=== PATIENT | female | born 1960 | race Caucasian/White ===

== ENCOUNTER 2022-01-12 19:46 | Inpatient (IN) | payer OTHER ==
[~2022-01-12] VITALS: Ht 157.5 cm; Wt 99.2 kg
[2022-01-12] MEDS ORDERED: MAXALT10 MG PO (20:29)
[2022-01-12] MEDS ORDERED: HYDROCODON-ACE1 EA10 PO (20:30)
--- NOTE | 2022-01-13 07:30 | NUR ---
SHIFT REPORT RECEIVED FROM KAVIN PRYOR. PT UP IN BED, CRYING 10/10 ABD PAIN. RN WILL CONTACT MD FOR PAIN CONTROL OPTIONS.
--- NOTE | 2022-01-13 07:40 | NUR ---
PT REPORTS 10/10 ABD PAIN. PT REFUSES TO TAKE DILAUDID BUT TO HER OXYCODONE ABOUT 3 HOURS AGO. PT STATES THAT THE TORADOL SHE HAD IN THE ER WORKED WELL. MD CALLED ON THE PHONE TO REQUEST PAIN MEDS. TORADOL 30MG IV ONCE ORDERED. ORDER REPEATED BACK.
--- NOTE | 2022-01-13 07:56 | NUR ---
SCHEDULED MED PROVIDED. NO OTHER NEEDS. CALL LIGHT IN REACH.
--- NOTE | 2022-01-13 08:11 | NUR ---
PT PAIN 10/10, PRN PAIN MED PROVIDED. MEDICATION EDUCATION PROVIDED. NO OTHER NEEDS. CALL LIGHT IN REACH.
--- NOTE | 2022-01-13 09:45 | NUR ---
ASSESSMENT COMPLETED. SCHEDULED MEDS PROVIDED. GCS 15, A&O X4. LUNGS CLEAR, HEART TONES REGULAR. ABD SOFT, TENDER, BOWEL TONES ACTIVE. CMS INTACT. EDEMA IN LAFT HAND FROM IV INFILTRATION RESOLVING, GENERALIZED. IV WNL, CDI, FLUSHED WELL. NO OTHER NEEDS AT THIS TIME. CALL LIGHT IN REACH.
--- NOTE | 2022-01-13 10:15 | NUR ---
PT REPORTS 6/10 PAIN, PRN PAIN MED PROVIDED. NO OTHER NEEDS. CALL LIGHT IN REACH.
--- NOTE | 2022-01-13 10:40 | NUR ---
Spoke with pt. She lives in [facility] in a 2 story house, no rails. Laundry and bedroom in the basement. 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 She denies needs. States she is trying to finding a music mixer that is in Net work. Daughter works in insurance and is attempting to help. She asked if hospitalist would make a referral and I let her know she may need to go through her PCP. She denies any other needs and plans on dc to home when she is cleared medically.
--- NOTE | 2022-01-13 11:48 | NUR ---
PT RESTING IN BED, EYES CLOSED. RR EVEN, UNLABORED. CALL LIGHT IN REACH.
--- NOTE | 2022-01-13 12:19 | NUR ---
KONSTANTIN MARTINEZ REQUESTED I NOT DISTURB PT AT THIS TIME. SHE HAS HAD A ROUGH NIGHT AND NOT MUCH SLEEP. WILL FOLLOW NEEDED
--- NOTE | 2022-01-13 12:27 | NUR ---
THIS RN TO ROOM TO CHECK ON PT. PT UP IN ROOM PACING. PT REPORTS "I JUST WOKE UP FROM A NAP AND THE PAIN IS RISING." PT REPORTS 8/10 SHARP PAIN IN ABODMEN WELL 5/10 HEADACHE PAIN. PT REQUESTS DILAUDID AND TYLENOL. SEE MAR FOR MEDICATION GIVEN. PT STATES HER HEADACHE DOES NOT FEEL LIEK A MIGRAINE AND DECLINES [place]. PT DRINKING LARGE AMOUNTS OF WATER. PT ENCOURAGED TO DRINK LESS FLUIDS IF PAIN IS ESCLATING. PT VERBALIZES UNDERSTANDING. PT UP TO RESTROOM, STEADY ON FEET AND INDEPENDANT IN ROOM. NO ADDITIONAL NEEDS, CALL LIGHT WITHIN REACH.
--- NOTE | 2022-01-13 14:00 | NUR ---
PT REPORTS 10/10 ABD PAIN. PRN PAIN MEDICATIONS PROVIDED. PAIN MANAGEMENT EDUCATION PROVIDED. PT VERY ANXIOUS ABOUT PAIN NOT BEING MANAGED AND EXUASTING PAIN MEDICATION OPTIONS. NO OTHER NEEDS AT THIS TIME. PAIN HAS DROPPED TO A 5/10 AFTER 30 MINUTES OF EDUCATION. CALL LIGHT IN REACH.
--- NOTE | 2022-01-13 15:24 | NUR ---
RN IN ROOM TO ASSESS PT -PT RESTING ON COUCH UPON ENTERING. PT RATES PAIN 4/10 IN ABD AND REQUESTS PAIN MEDICATION. 20MG PO ADMINISTERED - EDUCATION PROVIDED TO PT REGARDING STEPS TO MANAGE PAIN BETTER. PT DENIES FURTHER NEEDS AT THIS TIME. IV SITE TOLERATING IVF WITHOUT DIFFICULTY.
--- NOTE | 2022-01-13 17:43 | NUR ---
RN ROUNDING ON PT - PT RESTING IN BED ASLEEP UPON ENTRY. PT STATES PAIN IS MODERATLY CONTROLLED WITH 20MG OXY. DENIES NEED FOR FURTHER COVERAGE RIGHT NOW. AT BEDSIDE. PT REQUESTS 1L VIA NC WHILE SLEEPING - SP02 STABLE ON ROOM AIR BUT PT ANXIOUS REGARDING WHATS "THE RIGHT THING TO DO".
--- NOTE | 2022-01-13 18:07 | NUR ---
PT USES CALL LIGHT TO REQUEST PAIN MEDICATION - IV DILAUDID ADMINISTERED. PT CONTINUES TO HAVE NC IN PLACE.
--- NOTE | 2022-01-13 19:38 | NUR ---
PT JUST RETURNED TO HER ROOM FROM AMBULATING IN THE HALLS. IS AT BEDSIDE. PT APPEARS TO BE ANXIOUS. DISCUSSED A PAIN CONTROL PLAN. CALL LIGHT INREACH.
--- NOTE | 2022-01-13 22:31 | NUR ---
PT IS SITTING UP ON HER COUCH IN ROOM. SHE HAS ICE PACKS, WATER ON HER TABLE, FEET PROPPED UP. SHE STATES HER PAIN IS 0/10.
--- NOTE | 2022-01-14 01:01 | NUR ---
P[T WAS SLEEPING COMFORTABLY WHEN HER PAIN ESCALATED AND WOKE HER UP. PAIN WENT FROM 8/10 TO 10/10. PT WAS NOTICEABLY SHAKING. PT WAS MEDICATED WITH PO OXYCODONE AND THEN DIALUDID 0.5 MG IV. SHE AHS 2 ICE PACKS , 1 ON ABD AND 1 ON HER BACK FOR COMFORT. SHE HAS PILLOWS UNDER EACH ARM. OXYGEN SAT WAS 97 % ON ROOM AIR.
--- NOTE | 2022-01-14 01:39 | NUR ---
PT RATES HER PAIN 8/10 NOW AFTER A SHORT NAP. SHE WAS UP TO THE BATHROOM TO VOID. URINE IS CLOUDY AND ORANGE COLORED.
--- NOTE | 2022-01-14 06:45 | NUR ---
DR AYOUB NOTIFIED OF INCREASE IN WBC AND LOW MAGNESIUM ON LABS THIS AM. NO NEW ORDERS.
--- NOTE | 2022-01-14 07:30 | NUR ---
THIS RN RECEIVED SHIFT REPORT FROM KONSTANTIN COELLO. PATIENT SITTING UP ON THE COUCH WAITING FOR OXYCODONE TO KICK IN ABD/BACK PAIN 02/01. PATIENT APPLYING ICE PACK TO ABD. PATIENT DENIES ANY CARE NEEDS AT THIS TIME. CALL LIGHT IS IN REACH.
--- NOTE | 2022-01-14 08:06 | NUR ---
PATIENT WAS ALREADY UP ON COUCH AND HAD ALREADY COMPLETED ORAL CARE. CALL LIGHT WITHIN REACH.
--- NOTE | 2022-01-14 08:20 | NUR ---
IESHA'S PAIN IS CONTROLLED AT HER COMFORT LEVEL AND DOES NOT WANT ANY PAIN MEDICATION AT THIS TIME, BUT WOULD LIKE THE TORADOL WHEN IT IS AVAILABLE. PATIENT AM ASSESSMENT COMPLETE. PATIENT DENIES ANY OTHER CARE NEEDS AT THIS TIME. CALL LIGHT IS IN REACH.
--- NOTE | 2022-01-14 09:20 | NUR ---
THIS RN IN TO SEE PATIENT. PATIENT HAVING 6/10 ABD PAIN AND GIVEN 30MG SIVP TORADOL AND 0.5MG SIVP DILAUDID. PATIENT REMAINS SITTING P ON THE COUCH. PATIENT ONLY DRANK ABOUT 100MLS OF BREAKFAST. PATIENT DENIES NAUSEA AND HAS NO OTHER CARE NEEDS AT THIS TIME. CALL LIGHT IN REACH AND IV INFUSING AND SITE WNL. CALL LIGHT IN REACH.
--- NOTE | 2022-01-14 09:56 | NUR ---
PT ON COUCH, DRINKING FLUIDS. NO NEEDS OR CONCERNS AT THIS TIME. WILL APPROACH LATER FOR BATHING, REFUSING SHOWER AT THIS TIME. CALL LIGHT WITHIN REACH.
--- NOTE | 2022-01-14 10:17 | NUR ---
THIS RN IN TO SEE PATIENT. PATIENT SAYS HER PAIN IS DOWN TO 5/10 AND FABIO SHE IS COMFORTABLE AT THAT LEVEL. PATIENT HAS NO OTHER CARE NEEDS AT THIS TIME. CALL LIGHT IS IN REACH.
--- NOTE | 2022-01-14 11:10 | NUR ---
PTS OUTPUT IS VERY ORANGE AND CLOUDY. NURSE NOTIFIED.
--- NOTE | 2022-01-14 13:32 | NUR ---
PT CALL LIGNT ON. PT REQUESTS "MORE PAIN MEDICATION" FOR "ESCALIATING" PAIN IN ABDOMEN. PT REPORTS 8 PAIN IN ABDOMEN. SEE MAR FOR MEDICATION GIVEN. PT REQUESTS CRANBERRY JUICE. EDUCATION DONE WITH PT REGARDING DRINKING A LOT WHEN HER ABDOMEN IS HURTING. PT STATES "WELL I JUST WAN'T TO DRINK, MY MOUTH IS TOO DRY." NO ADDITIONAL REQUESTS OR COMPLAINTS. CALL LIGHT WITHIN REACH.
--- NOTE | 2022-01-14 15:40 | NUR ---
THIS RN IN TO SEE PATIENT. PATIENT'S PAIN IS 2/10 AND SHE FEELS "PRETTY GOOD" AT THIS TIME. DEBIES NAUSEA OR NEED FOR PAIN MEDICATION. AFTERNOON ASSESSMENT IS COMPLETE. PATIENT REQUESTING TO MOVE TO FULL LIQUIDS. THIS WAS CLEARED WITH AND ORDER PLACED FOR FULL LIQUIDS AND TO ADVANCE TLERATED TO A REGULAR LOW FAT DIET. PATIENT GIVEN SOME VANILLA PDDING BY THIS RN. PATIENT DENIED ANY OTHER NEEDS AT THIS TIME. CALL LIGHT IS IN REACH.
--- NOTE | 2022-01-14 17:05 | NUR ---
PATIENT CALLED HAVING AN SUDDEN INCREASE IN ABD/LOW BACK PAIN 02/01. 0.5MG SIVP DILAUDID GIVENAS WELL 30MG IV TORADOL SIVP. PATIENT DENIED NAUSEA, BUT WAS NOT REALLY HUNGRY FOR DINNER AND TRAY WAS REMOVED AT PATIENT'S REQUEST. PATIENT DENIES ANY OTHER NEEDS AT THIS TIME. CALL LIGHT IS IN REACH.
--- NOTE | 2022-01-14 19:17 | NUR ---
PATIENT'S PAIN CONTROLLED AT THIS TIME. SHIFT REPORT GIVEN TO KONSTANTIN VALE. PATIENT DENIES ANY CARE NEEDS AT THIS TIME. CALL LIGHT IS IN REACH.
--- NOTE | 2022-01-14 19:44 | NUR ---
pt sitting in recliner, reort recieved. pain medication shedual discussed. pt states she is "comfortable" at this time. she does state she feels hot, fan at bedside provided. call light in reach and water avalable on bedside table. pt is independant in room. no needs stated at this time
--- NOTE | 2022-01-15 01:54 | NUR ---
PT ATE PUDDING EARLY THIS EVENING AND PT STATES THIS CAUSED HER "PAIN TO FLAIR" PT STATES NO PAIN AT THIS TIME. SHE IS RESTING COMFORTABLY IN BED.
--- NOTE | 2022-01-15 03:47 | NUR ---
pt awake and sitting on couch, she states "no abdominal pain" but said she has a headache, discussed home caffeine intake, she drinks tea all day. so hot tea given.
--- NOTE | 2022-01-15 05:10 | NUR ---
PT HAS BEEN RESTLESS TONIGHT, SHE STATES, " IF DO FEEL MYSELF, LIKE IM FOGGY IN THE BRAIN. DISCUSSED PAIN MEDICATION AND THEIR SIDEFFECTS. ENCOURAGED PT ONLY USE IV PAIN MEDICATION IF ORL PAIN MEDICATIONS DO NOT EFFECTIVLY REDUCE PAIN AFTER 45-60 MIN AFTER ADMINISTRATION. SHE WAS VERY INSISTANT THAT TORDOL AND DILAUDID BE GIVEN TOGETHER. WHEN SHE TAKES OXYCODONE PT CALLS AND WANT DILAUDID 15 MIN AFTER ADMINISTRATION. PT NEED MORE PAIN MANAGMENT EDUCATION. SHE DOES TAKE NARCOTICS REGULARLY AT HOME, FOR BACK PAIN.
--- NOTE | 2022-01-15 06:36 | NUR ---
PT STATES "MY FOG IS BETTER". PT REMAINS FORGETFULL AND CALLS FREQUANTLY ABOUT "WHERE ARE WE WITH TIMING OF MY PAIN MEDICATION", REINFIRCED WITH PT THAT MEDICATION IS AVALABLE PRN FOR PAIN THAT IS NOT TOLORABLE.
--- NOTE | 2022-01-15 07:15 | NUR ---
PT SITTING ON COUCH. PT REQ SHOWER. TOLD PT WILL SHOWER LATER THIS AM. PT IS INDEPENDENT IN ROOM. PT COULD REACH CALL LIGHT. NO FURTHER NEEDS AT THIS TIME.
--- NOTE | 2022-01-15 07:30 | NUR ---
SHIFT REPORT GIVEN TO THIS RN BY KONSTANTIN VALE. PATIENT HAS 3/10 PAIN AND IS COMFORTABLE AT THIS TIME. PATIENT REQUESTED A GLASS OF CRANBERRY JUICE WHICH WAS GIVEN BY THIS RN. PATIENT DENIED ANY OTHER CARE NEEDS AT THIS TIME. CALL LIGHT IS IN REACH.
--- NOTE | 2022-01-15 10:13 | NUR ---
PATIENT CALLED HAVING SOME NAUSEA. 4MG SIVP ZOFRAN GIVEN. PATIENT HAS HAD A SHOWER AND DENIES ANY OTHER NEEDS AT THIS TIME. IN THE ROOM TALKING WITH THE PATIENT ABOUT DC AT THIS TIME. CALL LIGHT IN REACH.
[2022-01-15] MEDS ORDERED: OXYCODONE HCL5 MG PO (10:27)
[2022-01-15] MEDS ORDERED: ONDANSETRON HCL4 MG PO (10:28)
[2022-01-15] MEDS ORDERED: CREON DR 3,0001 EACH PO (10:29)
--- NOTE | 2022-01-15 10:45 | NUR ---
PATIENT'S NAUSEA IS GONE AND IV IS NOW SALINE LOCKED. PATIENT ANTICIPATING DC. PATIENT HAS NO OTHER CARE NEEDS AT THIS TIME. CALL LIGHT IS IN REACH.
--- NOTE | 2022-01-15 13:08 | NUR ---
PATIENT CALLED HAVING 9/10 ABD PAIN AND WAS NOT ABLE TO EAT HER LUNCH AND PATIENT IS ALSO NAUSEATED. 20MG PO OXYCODONE WAS GIVEN AND 4MG PO ZOFRAN GIVEN. PATIENT WAS WANTING THE IV TORADOL, BUT I INFORMED THE PATIENT THAT HER IV MEDICATIONS HAD ALREEADY BEEN DC'D IN ANTICIPATION OF HER DC. PATIENT IS VERY ANXIOUS AT THIS TIME AND IS WONDERING HOW SHE IS GOING TO FILL HER RX'S ON THE WEEKEND. THIS RN TRYING TO FIND OUT THE ANSWERS TO THESE QUESTIONS. CALL LIGHT IS IN REACH.
--- NOTE | 2022-01-15 13:23 | NUR ---
PATIENT TEARFUL AND REQUESTING THAT WE FILL HER RX'S FOR A DAY SHE DOES NOT FEEL SHE HAS APPROPRIATE ATTIRE WITH HER TO GO INTO A PHARMACY. THIS RN SUGGESTED THAT SHE SEND HER DAUGHTER WHO IS COMING TO GET HER INTO THE PHARMACY TO GET HER MEDS. PATIENT INFORMED THE [facility] ARE BOTH OPEN UNTIL 6PM AND THE [facility] ARE ALSO OPEN UNTIL 6PM AND [facility] UNTIL 7PM. CALL LIGHT IS IN REACH.
--- NOTE | 2022-01-15 13:40 | NUR ---
PT IN CHAIR. PT CO OF PAIN. PT OFFERED REFRESH ON WATER AND DECLINED. PT REQ FOOD BE TAKEN OUT OF ROOM. PT DID NOT WANT TO EAT ANYMORE. TRIED TO PUT CALL LIGHT WITHIN REACH BUT PT DECLINED AND SAID SHE COULD GET UP AND DO IT IF SHE NEEDS US.
--- NOTE | 2022-01-15 14:15 | NUR ---
THIS RN RETURNED FROM LUNCH AND DANTE CHARGE NURSE INFORMED ME PATIENT HAD BEEN GIVEN HER DC RX AND HER IV HAD BEEN PULLED INTACT. PATIENT ALSO HAD DC VS DONE. PATIENT REMIANED ANGRY THAT THE HOSPITAL WOULD NOT FILL HER RX'S AND THAT SHE WOULD NEED TO GO BY A PHARMACY AFTER DC. KONSTANTIN HOEWLL INFORMED ME AT 1415 THE PATIENT HAD BEEN WAITING FOR HER RIDE, BUT HAD DC AND F/U INSTRUCTIONS AND PATIENT JUST WALKED OUT OF MED/SURG. THIS RN WENT TO CHECK PATIENT'S ROOM AND ALL OF PATIENT'S BELONGINGS WERE GONE.
== END 2022-01-15 14:15 | disposition home or self-care (01) | DRG 440 ==
LOC: ED 19:46 → MS 19:47
PROVIDERS: ADMIT Internal Medicine; ATTEND Internal Medicine
DX: K85.00 Idiopathic acute pancreatitis without necrosis or infection (principal); K86.1 Other chronic pancreatitis; Z88.2 Allergy status to sulfonamides; G43.909 Migraine, unspecified, not intractable, without status migrainosus; Z91.040 Latex allergy status; Z79.899 Other long term (current) drug therapy; Z20.822 Contact with and (suspected) exposure to COVID-19
CPT/HCPCS: 36415; 74177; 80048; 80053; 80061; 81001; 83690; 83735; 85025; 87502; 96361; 96375; 96376; 99285-25; A9270; C9113; C9803; J1170; J1650; J1885; J2405; J3475; J7030; J7121; Q9967; U0003

== ENCOUNTER 2022-05-29 04:55 | Emergency (ER) | payer OTHER ==
[~2022-05-29] VITALS: Ht 157.5 cm; Wt 96.5 kg
[~2022-05-29 04:55] MED LIST: CREON DR 3,0001 EACH PO; HYDROCODON-ACE1 EA10 PO; MAXALT10 MG PO; ONDANSETRON HCL4 MG PO; OXYCODONE HCL5 MG PO
[2022-05-29] MEDS ORDERED: ONDANSETRON ODT8 MG PO (07:21)
[2022-05-29] MEDS ORDERED: HYDROCODON-ACE1 EA10 PO (07:21)
[2022-05-29] MEDS ORDERED: PROTONIX40 MG PO (07:21)
== END 2022-05-29 07:32 | disposition home or self-care (01) ==
LOC: ED 04:55
DX: R10.9 Unspecified abdominal pain (principal); R11.2 Nausea with vomiting, unspecified; D72.829 Elevated white blood cell count, unspecified; Z88.2 Allergy status to sulfonamides; Z91.040 Latex allergy status; Z20.822 Contact with and (suspected) exposure to COVID-19
CPT/HCPCS: 36415; 74177; 80053; 81001; 83690; 83735; 85025; 96361; 96375; 96376; 99284-25; A9270; J1170; J2405; J7030; Q9967; U0003

== ENCOUNTER 2024-02-19 18:26 | Emergency (ER) | payer OTHER ==
[~2024-02-19] VITALS: Ht 157.5 cm; Wt 95.8 kg
--- OUTSIDE RECORDS SUMMARY | ~2024-02-19 | XMS | Continuity of Care Document ---
Demographics + + + | Address | [address] | | | [place] [address] | + + + | Preferred Language | Unknown | + + + | Marital Status | | + + + | Orthodoxy Affiliation | Unknown | + + + | Race | White | + + + | Ethnic Group | Not or | + + + Author + + + | Author | [facility] | + + + | Organization | [facility] | + + + | Address | [address] | | | [place] [address] | + + + | Phone | | + + + Care Team Providers + + + + | [facility] Constable Name | Role | Phone | + + + + Unavailable | Unavailable | + + + + Unavailable | Unavailable | + + + + Allergies No information. Encounters No information. Functional Status No information. Immunizations No information. Medications + + + + | date | description | facility | + + + + | 2023-12-31 00:00 | rizatriptan 10 MG Oral | [facility] | | | Tablet | | + + + + | 2023-12-31 00:00 | Rizatriptan Benzoate 10 MG | [facility] | | | Oral Tablet | | + + + + Problems No information. Procedures + + + + | date | description | facility | + + + + | 2024-02-18 00:00 | ECG; Routine at Least 12 | [facility] | | | Leads; Interpretation & | | | | Report | | + + + + Results/Labs No information. Social History + + + + | date | description | facility | + + + + | 2024-02-19 00:00 | Unknown if ever smoked | [facility] | + + + + Vital Signs + + + +---------+ | date | measurement | value | units | + + + +---------+ | 2024-02-18 00:00 | BMI | 36.3 | 1 | + + + +---------+ | 2024-02-18 00:00 | BP_diastolic | 80 | mmHg | + + + +---------+ | 2024-02-18 00:00 | BP_systolic | 132 | mmHg | + + + +---------+ | 2024-02-18 00:00 | BSA | 2 | 1 | + + + +---------+ | 2024-02-18 00:00 | heart_rate | 72 | /min | + + + +---------+ | 2024-02-18 00:00 | height_metric | 160.02 | cm | + + + +---------+ | 2024-02-18 00:00 | height_standard | 63 | in | + + + +---------+ | 2024-02-18 00:00 | o2_saturation | 97 | % | + + + +---------+ | 2024-02-18 00:00 | temperature_metric | 36.33 | C | | | | | | + + + +---------+ | 2024-02-18 00:00 | | 97.4 | F | | | temperature_standar | | | | | d | | | + + + +---------+ | 2024-02-18 00:00 | weight_metric | 92.99 | kg | + + + +---------+ | 2024-02-18 00:00 | weight_standard | 205 | lb | + + + +---------+"
[~2024-02-19 18:26] MED LIST changes: +ONDANSETRON ODT8 MG PO; +PROTONIX40 MG PO
[2024-02-19 18:45] LABS: BASOPHILS 0.8 % (0-2); EOSINOPHILS 5.9 % (0-6); HEMATOCRIT 39.8 % (35.0-50.0); HEMOGLOBIN 13.7 g/dL (12.0-18.0); MCH 30.6 (27-36); MCHC 34.4 g/dl (30-36); MCV 88.7 fl (81-99); MONOCYTES 9.8 % (0-12); NEUTROPHILS 52.5 % (39-80); PLATELET COUNT 362 K/uL (140-440); RBC 4.48 M/ul (4.3-5.7); RDW 13.4 (10.5-15.0)
[2024-02-19] MEDS ORDERED: ASPIRIN 81 MG CHEW PO ONE (18:45)
[2024-02-19] MEDS ORDERED: RIZATRIPTAN10 MG PO (18:49)
[2024-02-19 19:03] LABS: ALBUMIN 3.6 g/dL (3.4-5.0); ALBUMIN/GLOBULIN RATIO 0.9 (1.1-2.4); ANION GAP 14.9 (7-21); BILIRUBIN, TOTAL 0.3 ng/dL (0.2-1.0); BUN/CREATININE RATIO 13.13 (6.0-28.6); CALCIUM 9.3 mg/dL (8.5-10.1); CREATININE, SERUM 0.99 mg/dL (0.55-1.02); POTASSIUM 3.9 mmol/L (3.5-5.1); PROTEIN, TOTAL 7.6 g/dL (6.4-8.2)
[2024-02-19 19:49] VITALS: BP 146/76
--- NOTE | 2024-02-19 22:15 | EKG ---
[facility] [address] [place] [address] Signed Normal sinus rhythm Cannot rule out Inferior infarct , age undetermined Abnormal ECG No previous ECGs available Confirmed by Edy Reynaga MD () on 02/19/2024 10:14:50 PM Electronically Signed By: EDY REYNAGA MD 02/19/24 2215 PATIENT NAME: CHELSEY MARTINEZ Electrocardiogram DATE OF : 60 PHYSICIAN: EDY REYNAGA MD REPORT #: [id number] REPORT IS CONFIDENTIAL AND NOT TO BE RELEASED WITHOUT AUTHORIZATION
== END 2024-02-19 19:49 | disposition home or self-care (01) ==
LOC: ED 18:26
PROVIDERS: Emergency Medicine
DX: R07.89 Other chest pain (principal); Z88.2 Allergy status to sulfonamides; Z91.040 Latex allergy status
CPT/HCPCS: 36415; 71045; 80053; 83735; 84484; 85025; 85379; 93005; 93010; 99285-25; A9270